=== PATIENT | female | born 1970 | race American Indian/Alaskan Native ===

== ENCOUNTER 2017-07-23 14:06 | Outpatient (CLI) | payer OTHER ==
--- NOTE | 2017-07-23 14:52 | Mammography Report ---
Bilateral mammogram: Compared to 06/28/12. CAD study utilized. Findings: Scattered glandular parenchyma bilaterally. Focal new asymmetry upper outer anterior right breast. New focal asymmetry mid posterior left breast. No microcalcification. Benign axillary nodes. Impression: Focal densities in right breast. Recommend spot mag and if necessary sonographic examination. BI-RADS CATEGORY: 0 = Needs additional imaging evaluation ACR BI-RADS MAMMOGRAPHIC CODES: 0 = Needs additional imaging evaluation; 1 = Negative; 2 = Benign; 3 = Probably benign; 4 = Suspicious; 5 = Malignant; 6 = Known biopsy-proven malignancy COMMENT: 1. Dense breast tissue, i.e., adenosis, fibrocystic changes, etc., may obscure an underlying neoplasm. 2. Approximately 10% of cancers are not detected with mammography. 3. A negative mammography report should not delay biopsy if a clinically suspicious mass is present. COMMENT: Patient follow-up letters are generated in [employer].
== END 2017-07-23 14:07 | disposition home or self-care (01) ==
LOC: MAMMO 14:06
PROVIDERS: ATTEND Family Medicine Adult Medicine
DX: Z12.31 Encounter for screening mammogram for malignant neoplasm of breast (principal)
CPT/HCPCS: 77067; G0202

== ENCOUNTER 2017-08-06 13:56 | Outpatient (CLI) | payer OTHER ==
--- NOTE | 2017-08-06 14:35 | Mammography Report ---
Spot compression magnification of densities right breast: Findings: There is effacement noted of densities. No mass or microcalcification seen. Impression: Benign findings. Annual followup recommended. BI-RADS CATEGORY: 2 = Benign ACR BI-RADS MAMMOGRAPHIC CODES: 0 = Needs additional imaging evaluation; 1 = Negative; 2 = Benign; 3 = Probably benign; 4 = Suspicious; 5 = Malignant; 6 = Known biopsy-proven malignancy COMMENT: 1. Dense breast tissue, i.e., adenosis, fibrocystic changes, etc., may obscure an underlying neoplasm. 2. Approximately 10% of cancers are not detected with mammography. 3. A negative mammography report should not delay biopsy if a clinically suspicious mass is present. COMMENT: Patient follow-up letters are generated in [employer]
== END 2017-08-06 13:57 | disposition home or self-care (01) ==
LOC: MAMMO 13:56
PROVIDERS: ATTEND Family Medicine Adult Medicine
DX: R92.2 Inconclusive mammogram (principal)
CPT/HCPCS: G0206-RT